=== PATIENT | male | born 1945 | race Caucasian/White ===

== ENCOUNTER 2017-08-22 08:34 | Day surgery (SDC) | payer MEDICARE ==
[2017-08-20 17:30] VITALS: BP 148/77
[2017-08-20 17:43] LABS: BASOPHILS % (AUTO) 0.9 % (0.0-5.0); HEMATOCRIT 34.8 % (42-54); LYMPHOCYTES % (AUTO) 21.7 % (21.0-51.0); MEAN CORPUSCULAR HEMOGLOBIN 30.7 pg (27.0-33.0); MEAN CORPUSCULAR HGB CONC 34.5 g/dL (32.0-36.0); MONOCYTES % (AUTO) 11.8 % (3.0-13.0); NEUTROPHILS % (AUTO) 63.6 % (40.0-77.0); NUCLEATED RED BLOOD CELLS 0.1 % (0.0-0.19); PLATELET COUNT (AUTO) 242 K/uL (130-400); RED BLOOD CELL COUNT(AUTO) 3.92 MIL/uL (4.50-6.20); RED CELL DISTRIBUTION WIDTH 13.5 % (11.0-15.5); WHITE BLOOD COUNT (AUTO) 7.1 K/uL (4.8-10.8)
[2017-08-20 17:50] LABS: CREATININE 1.2 mg/dL (0.5-1.5); POTASSIUM 4.4 mmol/L (3.5-5.1)
[2017-08-22] VITALS (18 sets, daily range): BP systolic 112–156; BP diastolic 53–86
[~2017-08-22] VITALS: Ht 165.1 cm; Wt 98.2 kg
[~2017-08-22 08:34] MED LIST: ALLO300T2 PO; CEFAZOLIN SODIUM 1 GM VIAL IVP SCH; CHOL200013 PO; LISI-617 PO; LORA10TA7 PO; METF10004 PO; MULT1TAB66 PO; OMEP20TA2 PO; SIMV20TA6 PO; TAMS0.4C32 PO
[2017-08-22] MEDS ORDERED: SODIUM CHLORIDE 0.9% 1000ML 1,000 ML IV ONE (08:50)
[2017-08-22] MEDS ORDERED: ONDANSETRON HCL 4 MG/2 ML VIAL ONE (11:26)
[2017-08-22] MEDS ORDERED: LIDOCAINE PF 2% 5ML ABBOJECT ONE (11:26)
[2017-08-22] MEDS ORDERED: GLYCOPYRROLATE 0.2 MG/ML 5 ML VIAL ONE (11:26)
[2017-08-22] MEDS ORDERED: DEXAMETHASONE SOD PHOSPHATE 10MG/ML 1ML VIAL ONE (11:26)
[2017-08-22] MEDS ORDERED: PROPOFOL 10 MG/ML 20ML VIAL IV ONE (11:27)
[2017-08-22] MEDS ORDERED: MIDAZOLAM HCL 1 MG/ML 2ML VIAL ONE (11:27)
[2017-08-22] MEDS ORDERED: FENTANYL CITRATE PF 50 MCG/1 ML 2ML VIAL ONE (11:27)
[2017-08-22] MEDS ORDERED: BUPIVACAINE/PF 0.25% 30ML VIAL IJ ONE (11:28)
[2017-08-22] MEDS ORDERED: EPHEDRINE SULFATE 50 MG/ML AMPULE ONE (11:40)
== END 2017-08-22 14:23 | disposition home or self-care (01) ==
LOC: DAH 08:34
PROVIDERS: ATTEND Urology
DX: N43.3 Hydrocele, unspecified (principal); I10 Essential (primary) hypertension; E11.9 Type 2 diabetes mellitus without complications; K21.9 Gastro-esophageal reflux disease without esophagitis; M10.9 Gout, unspecified; Z79.899 Other long term (current) drug therapy; Z98.890 Other specified postprocedural states; E66.9 Obesity, unspecified; I25.10 Atherosclerotic heart disease of native coronary artery without angina pectoris
CPT/HCPCS: 36415; 51702; 55040; 80048; 82948 ×2; 85025; 88302; 93005; 99284; A4218; A4510; A4600; A4930; A6223; C1729; J0690; J1100; J2001; J2250; J2405; J2704; J3010; J3490 ×3; J7030

== ENCOUNTER 2017-08-22 21:54 | Emergency (ER) | payer MEDICARE ==
[~2017-08-22 21:54] MED LIST changes: -CEFAZOLIN SODIUM 1 GM VIAL IVP SCH
== END 2017-08-22 23:20 | disposition home or self-care (01) ==
LOC: EDH 21:54
DX: R33.9 Retention of urine, unspecified (principal); I10 Essential (primary) hypertension; E11.9 Type 2 diabetes mellitus without complications; Z98.890 Other specified postprocedural states
CPT/HCPCS: 51702

== ENCOUNTER 2019-11-01 11:29 | Day surgery (SDC) | payer MEDICARE ==
[2019-10-29 16:58] LABS: BASOPHILS % (AUTO) 0.7 % (0.0-5.0); EOSINOPHILS % (AUTO) 3.5 % (0.0-8.0); HEMATOCRIT 33.6 % (42-54); LYMPHOCYTES % (AUTO) 13.4 % (21.0-51.0); MEAN CORPUSCULAR HEMOGLOBIN 30.3 pg (27.0-33.0); MEAN CORPUSCULAR HGB CONC 32.1 g/dL (32.0-36.0); MEAN CORPUSCULAR VOLUME 94.1 fL (79-99); MONOCYTES % (AUTO) 9.2 % (3.0-13.0); NEUTROPHILS % (AUTO) 72.3 % (40.0-77.0); PLATELET COUNT (AUTO) 289 K/uL (130-400); RED BLOOD CELL COUNT(AUTO) 3.57 MIL/uL (4.50-6.20); RED CELL DISTRIBUTION WIDTH 12.9 % (11.0-15.5); WHITE BLOOD COUNT (AUTO) 9.4 K/uL (4.8-10.8)
[2019-10-29 17:07] LABS: CREATININE 1.1 mg/dL (0.5-1.5); POTASSIUM 4.2 mmol/L (3.5-5.1)
[2019-10-29 17:09] VITALS: BP 148/65
[2019-11-01] VITALS (18 sets, daily range): BP systolic 112–145; BP diastolic 48–77
[~2019-11-01] VITALS: Ht 162.6 cm; Wt 93.0 kg
[~2019-11-01 11:29] MED LIST changes: -LISI-617 PO; +LISI10TA7 PO; +METF-446 PO; -METF10004 PO; +MULT-1258 PO; -MULT1TAB66 PO; +SIMV-43 PO; -SIMV20TA6 PO; +[UNRECOGNIZED DRUG - OTHER] PO; +[UNRECOGNIZED DRUG - OTHER] PO; +[UNRECOGNIZED DRUG - OTHER] PO; +[UNRECOGNIZED DRUG - OTHER] PO
[2019-11-01] MEDS: CEFTRIAXONE SODIUM 1 GM IVP SCH ×2 (12:00→13:10)
[2019-11-01] MEDS ORDERED: SODIUM CHLORIDE 0.9% 1000ML 1,000 ML IV ONE ×2 (12:16→13:44)
[2019-11-01] MEDS ORDERED: PROPOFOL 10 MG/ML 20ML VIAL IV ONE (12:43)
[2019-11-01] MEDS ORDERED: SUCCINYLCHOLINE CHLORIDE 20 MG/ML 10 ML VIAL ONE (12:43)
[2019-11-01] MEDS ORDERED: FENTANYL CITRATE PF 50 MCG/1 ML 2ML VIAL ONE (12:43)
[2019-11-01] MEDS ORDERED: LIDOCAINE PF 2% 5ML ABBOJECT ONE (12:43)
[2019-11-01] MEDS ORDERED: ROCURONIUM 10MG/1ML SYR 10 MG/ML ML ONE (12:43)
[2019-11-01] MEDS ORDERED: EPHEDRINE SULFATE 50 MG/ML AMPULE ONE (13:33)
[2019-11-01] MEDS ORDERED: OPIUM/BELLADONNA ALKALOIDS 1 EACH SUPP.RECT RC ONE (13:43)
[2019-11-01] MEDS ORDERED: GLYCOPYRROLATE 1 MG/5 ML SYRINGE ONE (14:31)
[2019-11-01] MEDS ORDERED: NEOSTIGMINE 5MG/5ML SYR IV ONE (14:32)
[2019-11-01] MEDS ORDERED: PHENAZOPYRIDINE HCL 200 MG TABLET ONE (16:34)
== END 2019-11-01 16:55 | disposition home or self-care (01) ==
LOC: DAH 11:29
PROVIDERS: ATTEND Urology
DX: N40.1 Benign prostatic hyperplasia with lower urinary tract symptoms (principal); R33.9 Retention of urine, unspecified; I10 Essential (primary) hypertension; E78.5 Hyperlipidemia, unspecified; K21.9 Gastro-esophageal reflux disease without esophagitis; E11.9 Type 2 diabetes mellitus without complications; M10.9 Gout, unspecified; Z79.84 Long term (current) use of oral hypoglycemic drugs; Z79.899 Other long term (current) drug therapy
CPT/HCPCS: 36415; 52648; 80048; 82948 ×2; 85025; 93005; A4213; A4215; A4221; A4222; A4223; A4340; A4354; A4600; A4663; J0330; J0696; J2001; J2704; J2710; J3010; J3490 ×2; J7030 ×3; J7120